=== PATIENT | female | born 1955 | race Caucasian/White ===

== ENCOUNTER → 2018-01-07 12:15 | Outpatient (CLI) | payer OTHER, MEDICAID, SELFPAY ==
--- NOTE | 2018-01-07 | DI.RAD.S_ITS ---
PROCEDURE: XR THORACIC SPINE 2V INDICATIONS: DORSALGIA TECHNIQUE: 2 views of the thoracic spine were acquired. COMPARISON: None. FINDINGS: Bones: Mild depression and deformity of the superior endplates in the upper thoracic region appears most marked at T6 where there is slight anterior volume loss. These are of undetermined chronicity. No suspicious bony lesions. Mild levoconvex curvature. Mild, multilevel disc narrowing with anterior bony lipping. 12 pairs of ribs are noted, and appear intact where visualized. Soft tissues: No paravertebral stripe thickening. IMPRESSION: 1. Very mild compression deformities of the superior endplates in the upper thoracic region, T4-T7, most marked at T6. 2. Mild thoracic curvature and diffuse degenerative changes. Dictated by: Tejinder Day M.D. on 01/07/2018 at 14:29 Approved by: Tejinder Day M.D. on 01/07/2018 at 14:34
--- NOTE | 2018-01-07 | DI.RAD.S_ITS ---
PROCEDURE: XR LUMBAR SPINE 2-3V INDICATIONS: DORSALGIA TECHNIQUE: 3 views of the lumbar spine were acquired. COMPARISON: None. FINDINGS: Bones: 5 [id number] vertebrae are present. There is mild dextroconvex curvature and slight retrolisthesis L2-3, otherwise normal bony alignment. No vertebral body compression fractures. No suspicious bony lesions. Disc degenerative changes are present at L3-4 and L4-5. Facet sclerosis L5-S1. Soft tissues: Overlying bowel gas pattern is normal. No suspicious soft tissue calcifications. IMPRESSION: Mild degenerative changes lower lumbar spine. Dictated by: Tejinder Day M.D. on 01/07/2018 at 14:34 Approved by: Tejinder Day M.D. on 01/07/2018 at 14:36
== END ==
PROVIDERS: Visit Provider Physician Assistant
DX: M51.34 Other intervertebral disc degeneration, thoracic region (principal); M41.24 Other idiopathic scoliosis, thoracic region
CPT/HCPCS: 72070; 72100

== ENCOUNTER → 2018-01-17 12:54 | Outpatient (CLI) | payer OTHER, MEDICAID, SELFPAY ==
--- NOTE | 2018-01-17 | DI.RAD.S_ITS ---
This blank DEXA report has been sent in error by the PACS system. The correct and complete report will be forthcoming in 1-2 days. Thank you for your patience and understanding. Dictated by: Demetrio Ferguson M.D. on 01/17/2018 at 13:50 Approved by: Demetrio Ferguson M.D. on 01/17/2018 at 13:50
== END ==
PROVIDERS: Visit Provider Physician Assistant
DX: M81.0 Age-related osteoporosis without current pathological fracture (principal); Z78.0 Asymptomatic menopausal state; E07.9 Disorder of thyroid, unspecified; Z87.891 Personal history of nicotine dependence
CPT/HCPCS: 77080

== ENCOUNTER 2018-01-27 15:06 | Emergency (ER) | payer OTHER, MEDICAID, SELFPAY ==
[2018-01-27 15:11] VITALS: BP 134/74; PULSE 84; RESP 14; TEMP 36.3; O2SAT 100
--- NOTE | 2018-01-27 15:51 | DI.RAD.S_ITS ---
PROCEDURE: XR HIP W PEL IF DONE LT 2V INDICATIONS: hip pain TECHNIQUE: AP pelvis with lateral view(s) of the left hip(s). COMPARISON: None. FINDINGS: Bones: No fractures or dislocations. Pelvic ring appears intact. No suspicious bony lesions. Bilateral hip joint osteoarthritis is seen. No evidence of avascular necrosis. Soft tissues: The visualized bowel gas pattern is normal. No suspicious soft tissue calcifications. IMPRESSION: Bilateral hip joint osteoarthritis. No acute pelvic or hip fracture. No evidence of avascular necrosis. Dictated by: Demetrio Ferguson M.D. on 01/27/2018 at 16:15 Approved by: Demetrio Ferguson M.D. on 01/27/2018 at 16:16
[2018-01-27] MEDS: HYDROCODONE/ACET 5/325 TABLET 1 TAB PO (16:33)
--- NOTE | 2018-01-27 16:34 | ED_ITS ---
HPI - Extremity Injury (Lower) <Shazia Gonzales PA-C - Last Filed: 01/27/18 18:00> General Chief Complaint: Extremity Injury, Lower Stated Complaint: LEFT HIP PAIN Time Seen by Provider: 01/27/18 15:45 Source: patient Mode of arrival: ambulatory Limitations: no limitations History of Present Illness HPI Narrative: This 62-year-old female complains of progressively worsening left hip pain. She states she has had this to some degree for about a month, but has had ?excruciating? pain for the last week to the point that she can't sleep due to not being able to roll over in bed because of the pain. She saw her PCP last week and was prescribed Celebrex and gabapentin for this but these have not helped (she also notes that she was recently diagnosed with osteoporosis and a compression fracture in her lumbar spine). She states that she got Aleve today and took 2 of these instead with no relief. She denies any acute trauma, states that she has had some ongoing pain across her low back for at least a couple of months and was trying to continue her usual exercises at the gym. She did get a low back adjustment apparently at the gym, does not think this or anything else correlates with the worsening of her pain. She has not had any new rash, fever, or joint swelling. She states that pain also worsens with walking and weight-bearing, better with heat and rest. She denies any radiation of her back pain in her extremities. Denies any new weakness, paresthesia, bowel or bladder symptoms Related Data Allergies Allergy/AdvReac Type Severity Reaction Status Date / Time Sulfa (Sulfonamide Allergy Severe SWELLING Verified 01/27/18 16:30 Antibiotics) AND ITCHING [SULFA (SULFONAMIDE ANTIBIOTICS)] Review of Systems <Shazia Gonzales PA-C - Last Filed: 01/27/18 18:00> Review of Systems All systems reviewed & are unremarkable except as noted in HPI and below Exam <Shazia Gonzales PA-C - Last Filed: 01/27/18 18:00> Narrative Exam Narrative: GENERAL APPEARANCE: Patient sitting comfortably, in no distress. LUNGS: Clear to auscultation bilaterally. HEART: Rate and rhythm regular without murmur, normal S1 and S2, no S3 or S4. MUSCULOSKELETAL: No point tenderness over the lumbosacral spine or left SI joint. Tender at the left anterior lateral hip border/proximal greater trochanter. She has full active and passive range of motion of the left hip not weight-bearing. Negative Alex's test. Strength bilateral lower extremities 5/5 against resistance in all hull. Negative modified straight leg raise. NEUROVASCULAR: Lower extremities no cyanosis or edema, warm and pink, sensation grossly intact DERMATOLOGIC: No exanthem Initial Vital Signs Initial Vital Signs: Vital Signs Temperature 97.4 F L 01/27/18 15:11 Pulse Rate 84 01/27/18 15:11 Respiratory Rate 14 01/27/18 15:11 Blood Pressure 134/74 01/27/18 15:11 Pulse Oximetry 100 01/27/18 15:11 <Shasta Poole DO - Last Filed: 01/30/18 12:37> Initial Vital Signs Initial Vital Signs: Vital Signs Temperature 97.4 F L 01/27/18 15:11 Pulse Rate 84 01/27/18 15:11 Respiratory Rate 14 01/27/18 15:11 Blood Pressure 134/74 01/27/18 15:11 Pulse Oximetry 100 01/27/18 15:11 Course <Shazia Gonzales PA-C - Last Filed: 01/27/18 18:00> Additional Information: Advised patient to avoid taking 2 NSAIDs. Advised that she can increase her gabapentin as she had only tried 200 mg. She has taken [place] previously without difficulty so was given some of this here and to try this evening so that she can determine whether helpful for sleep prior to talking to her PCP tomorrow. Advised not to drive when taking this or gabapentin. Orders Ordered: Discontinued Medications Hydrocodone Bitart/Acetaminophen ([place]rest[place] 5/325) 1 tab PO NOW ONE Stop: 01/27/18 16:24 Last Admin: 01/27/18 16:33 Dose: 1 tab Hydrocodone Bitart/Acetaminophen (Vicodin Prepack) 1 bottle MISC SEEINSTR ONE Stop: 01/27/18 16:49 Last Admin: 01/27/18 16:55 Dose: 1 bottle Vital Signs - 8 hr 01/27/18 15:11 01/27/18 16:55 Temperature 97.4 F L 98.4 F Pulse Rate 84 72 Respiratory Rate 14 16 Blood Pressure 134/74 Blood Pressure [Left Arm] 125/63 Pulse Oximetry 100 99 <Shasta Poole DO - Last Filed: 01/30/18 12:37> Orders Ordered: Discontinued Medications Hydrocodone Bitart/Acetaminophen ([place] 5/325) 1 tab PO NOW ONE Stop: 01/27/18 16:24 Last Admin: 01/27/18 16:33 Dose: 1 tab Hydrocodone Bitart/Acetaminophen (Vicodin Prepack) 1 bottle MISC SEEINSTR ONE Stop: 01/27/18 16:49 Last Admin: 01/27/18 16:55 Dose: 1 bottle Vital Signs - 8 hr 01/27/18 15:11 01/27/18 16:55 Temperature 97.4 F L 98.4 F Pulse Rate 84 72 Respiratory Rate 14 16 Blood Pressure 134/74 Blood Pressure [Left Arm] 125/63 Pulse Oximetry 100 99 Discharge Plan Departure Patient Disposition: Home Clinical Impression: Hip pain, left Discharge Date/Time: 01/27/18 17:01 Interventions: ED Discharge Assessment Last Done: 01/27/18 17:00 Instructions: DI for Hip Pain Activity Restrictions/Additional Instructions: You should return if you have any acutely worsening symptoms. You should take your Celebrex or Aleve, but do not use both in the same day. You can increase your gabapentin to 3 or 4 tablets at night and more if needed after you talk with Nicolle. Since you have taken hydrocodone/acetaminophen previously, we gave you little of this to try tonight at bedtime since you have not been able to sleep. Please remember that these can make you sleepy as well as the gabapentin , so you should not drive when using these medications. Also try adding over the counter lidocaine 4% patches to the painful area. Please call Nicolle tomorrow and let her know that you were seen in the emergency department and have had worsening pain so that you can get a faster follow-up visit and at least review medications while you are waiting to see the waste/materials exchange specialist Referrals: Nicolle Maldonado PA-C [Physician] - <Shasta Poole DO - Last Filed: 01/30/18 12:37> Cosign ED Attending Fadiature Attestation: I was immediately available in the department for consultation. This documentation has been reviewed and I agree with assessment and plan. Supervised by Shasta Poole DO
[2018-01-27 16:55] VITALS: BP 125/63; PULSE 72; RESP 16; TEMP 36.9; O2SAT 99
[2018-01-27] MEDS: HYDROCODONE/ACET 5/325 PREPACK 1 BOTTLE MISC (16:55)
== END 2018-01-27 17:01 | disposition home or self-care (01) ==
PROVIDERS: Emergency Provider Internal Medicine
DX: M25.552 Pain in left hip (principal)
CPT/HCPCS: 73502; 99282; 99283

== ENCOUNTER → 2018-06-23 11:14 | Outpatient (CLI) | payer OTHER, MEDICAID, SELFPAY ==
--- NOTE | 2018-06-23 | DI.RAD.S_ITS ---
PROCEDURE: XR CERVICAL SPINE 2V OR 3V INDICATIONS: BACK PAIN TECHNIQUE: 3 view(s) of the cervical spine were acquired. COMPARISON: [facility], CT, C-SPINE WITHOUT CONTRAST, 11/25/2015, 17:45. [facility], CR, CERVICAL SPINE 2 OR 3 VIEWS, 06/14/2008, 10:59. FINDINGS: Bones: No fractures or dislocations to the T1 level. Fusion from the C5 through the C7 level. Grade 1 retrolisthesis C4-C5 where there is severe disc degeneration. Moderate to severe C7-T1 disc degeneration. Mild multilevel uncovertebral hypertrophy. The lateral masses of C1 appear intact on the odontoid view. No suspicious bony lesions. Soft tissues: No prevertebral soft tissue swelling. Vascular calcifications indicate atherosclerosis. IMPRESSION: 1. Multilevel cervical fusion and disc degeneration, severe at the C4-C5 level where there is grade 1 retrolisthesis. Dictated by: Damian ROSS Interpreted: Demetrio Ferguson MD on 06/23/2018 at 13:06 Approved by: Demetrio Ferguson M.D. on 06/23/2018 at 17:00
--- NOTE | 2018-06-23 | DI.RAD.S_ITS ---
PROCEDURE: XR THORACIC SPINE 3V INDICATIONS: BACK PAIN TECHNIQUE: 3 views of the thoracic spine were acquired. COMPARISON: [facility], CR, XR LUMBAR SPINE 2-3V, 01/07/2018, 12:09. [facility], MR, MR LUMBAR SPINE WITHOUT CONTRAST, 02/10/2018, 13:20. [facility], CR, XR THORACIC SPINE 2 VIEWS, 01/30/2018, 10:54. [facility], CR, XR THORACIC SPINE 2V, 01/07/2018, 12:09. FINDINGS: Bones: There is been interval increase in L1 compression fracture with vertebral body height loss estimated at 43%. New mild compression fracture at the T9 level with vertebral body height loss estimated at 11%. No retropulsed fracture fragments. Multilevel disc degeneration.. No suspicious bony lesions. 12 pairs of ribs are noted, and appear intact where visualized. Soft tissues: No paravertebral stripe thickening. IMPRESSION: 1. Worsening L1 compression fracture and there is a new compression fracture at the T9 level compared to prior examination. If indicated MRI could be performed for further characterization. 2. Multilevel disc degeneration and diffuse osteopenia. Dictated by: Damian Cole [facility] Interpreted: Demetrio Ferguson MD on 06/23/2018 at 12:00 Approved by: Demetrio Ferguson M.D. on 06/23/2018 at 17:01
== END ==
PROVIDERS: Visit Provider Physician Assistant
DX: M80.88XA Other osteoporosis with current pathological fracture, vertebra(e), initial encounter for fracture (principal); M50.321 Other cervical disc degeneration at C4-C5 level; M51.36 Other intervertebral disc degeneration, lumbar region; M41.25 Other idiopathic scoliosis, thoracolumbar region; Z98.1 Arthrodesis status
CPT/HCPCS: 72040; 72072

== ENCOUNTER 2018-06-29 12:35 | Emergency (ER) | payer OTHER, MEDICAID, SELFPAY ==
[2018-06-29 12:50] VITALS: BP 136/90; PULSE 100; RESP 15; TEMP 36.1; O2SAT 99
--- NOTE | 2018-06-29 13:02 | DI.RAD.S_ITS ---
PROCEDURE: XR CHEST 2V INDICATIONS: pain TECHNIQUE: 2 views of the chest were acquired. COMPARISON: [facility], CT, ABDOMEN/PELVIS WITH CONTRAST, 04/29/2017, 10:56. [facility], CR, XR THORACIC SPINE 3V, 06/23/2018, 11:30. FINDINGS: Surgical changes and devices: None. Lungs and pleura: Lungs are clear. No pleural effusions or pneumothorax. Mediastinum: Mediastinal contours are normal. Heart size is normal. Bones and chest wall: No suspicious bony abnormalities. Soft tissues appear unremarkable. IMPRESSION: Mild interstitial prominence, chronic in appearance, with mild stranding at the left lung base likely representing mild or early pneumonia. This could represent chronic scarring alternatively, but this was not present on prior CT scanning of the abdomen/pelvis the included lung bases 04/29/17. Dictated by: Mahendra Jackson M.D. on 06/29/2018 at 13:40 Approved by: Mahendra Jackson M.D. on 06/29/2018 at 13:41
--- NOTE | 2018-06-29 15:26 | ED_ITS ---
HPI - Back Pain/Injury <SALINAS Marroquin - Last Filed: 06/29/18 21:34> General Chief Complaint: Back Pain/Injury Stated Complaint: Stated pain in sternum, cant lift arms Time Seen by Provider: 06/29/18 15:23 Source: patient Mode of arrival: ambulatory Limitations: no limitations History of Present Illness HPI Narrative: 62-year-old female with history of osteoporosis and chronic back pain here for complaint of sternal pain. She reports she has had sternal pain over the past couple of days. She reports that the pain started when she was reaching up overhead and she felt a pop to her sternal area. She denies any direct trauma to the sternal area. She reports increased pain with deep inspiration. She also has pain into her back area radiates into the left arm. She denies any stressors or relievers of her pain. No other concerns or complaints at this timeframe. Related Data Previous Rx's Medication Instructions Recorded cyclobenzaprine 10 mg PO TID PRN #20 tab 06/29/18 Allergies Allergy/AdvReac Type Severity Reaction Status Date / Time Sulfa (Sulfonamide Allergy Severe SWELLING Verified 06/29/18 12:50 Antibiotics) AND ITCHING [SULFA (SULFONAMIDE ANTIBIOTICS)] Review of Systems <SALINAS Marroquin - Last Filed: 06/29/18 21:34> Constitutional Denies chills, Denies fatigue, Denies fever(s), Denies lethargy and Denies weakness Eyes Denies change in vision, Denies eye discharge, Denies irritation and Denies loss of vision ENT Ears, Nose, Mouth, and Throat: Denies change in voice, Denies neck pain and Denies sore throat Cardiovascular Denies dyspnea and Denies dyspnea on exertion Comments: Sternal pain Respiratory Denies cough, Denies dyspnea, Denies dyspnea on exertion and Denies wheezing Gastrointestinal Gastrointestinal: Denies abdominal pain, Denies change in bowel habits, Denies diarrhea, Denies nausea and Denies vomiting Genitourinary Denies hematuria, Denies flank pain, Denies urinary incontinence and Denies urinary urgency Musculoskeletal Denies neck pain Integumentary/Breasts Denies pruritus, Denies erythema, Denies rash and Denies wounds Neurologic Denies confusion, Denies loss of vision and Denies weakness Psychiatric Denies anxiety, Denies confusion, Denies depression, Denies homicidal ideation and Denies suicidal ideation Endocrine Denies fatigue and Denies flushing Hematologic/Lymphatic Denies easy bruising Allergic/Immunologic Denies wheezing Exam <SALINAS Marroquin - Last Filed: 06/29/18 21:34> Initial Vital Signs Initial Vital Signs: Vital Signs Temperature 97.0 F L 06/29/18 12:50 Pulse Rate 100 H 06/29/18 12:50 Respiratory Rate 15 06/29/18 12:50 Blood Pressure 136/90 06/29/18 12:50 Pulse Oximetry 99 06/29/18 12:50 Const General: cooperative and well developed Nutritional Appearance: well nourished Orientation: alert, awake, oriented x3 and not confused HENMT Mouth: oral mucosae normal, oropharynx normal and moist mucous membranes Eyes Conjunctivae: conjunctivae normal Sclera: sclerae normal Pupils: PERRL EOM: EOM intact bilaterally Chest Other: Pain to anterior chest wall with palpation to bilateral sternal borders. No signs of trauma. Resp Effort & Inspection: normal respiratory effort, able to speak in complete sentences, no respiratory distress and no use of accessory muscles Auscultation: clear to auscultation bilaterally, no rales, no rhonchi and no wheezes Cardio Rate: regular rate Rhythm: regular rhythm Heart Sounds: no click, no gallops, no murmurs and no rubs Pulses: normal peripheral pulses GI Inspection: non-distended Palpation: soft, no hepatosplenomegaly, No guarding, No pulsatile mass and No tender Auscultation: normal bowel sounds Skin General: no rashes or lesions noted, No jaundice and No petechiae Neuro General: alert, oriented x3, gait normal and no focal motor deficits Speech: speech normal <Todd Allen DO - Last Filed: 06/30/18 08:30> Initial Vital Signs Initial Vital Signs: Vital Signs Temperature 97.0 F L 06/29/18 12:50 Pulse Rate 100 H 06/29/18 12:50 Respiratory Rate 15 06/29/18 12:50 Blood Pressure 136/90 06/29/18 12:50 Pulse Oximetry 99 06/29/18 12:50 Course <SALINAS Marroquin - Last Filed: 06/29/18 21:34> Orders Ordered: Discontinued Medications Cyclobenzaprine HCl (Flexeril) 10 mg PO NOW ONE Stop: 06/29/18 17:24 Last Admin: 06/29/18 17:42 Dose: 10 mg Vital Signs - 8 hr 06/29/18 16:10 06/29/18 17:00 Pulse Rate 98 H 92 H Respiratory Rate 16 16 Blood Pressure [Right Arm] 129/84 116/74 Pulse Oximetry 97 95 <Todd Allen DO - Last Filed: 06/30/18 08:30> Orders Ordered: Discontinued Medications Cyclobenzaprine HCl (Flexeril) 10 mg PO NOW ONE Stop: 06/29/18 17:24 Last Admin: 06/29/18 17:42 Dose: 10 mg Vital Signs - 8 hr 06/29/18 16:10 06/29/18 17:00 Pulse Rate 98 H 92 H Respiratory Rate 16 16 Blood Pressure [Right Arm] 129/84 116/74 Pulse Oximetry 97 95 MDM - Back Pain/Injury <SALINAS Marroquin - Last Filed: 06/29/18 21:34> Lab Data Result diagrams: 06/29/18 16:00 06/29/18 16:00 Lab Results 06/29/18 06/29/18 Range/Units 16:00 16:00 WBC 8.0 (4.5-11.0) X10^3/uL RBC 3.57 L (4.0-5.2) X10^6/uL Hgb 11.9 L (12.0-16.0) g/dL Hct 34.5 L (36-46) % MCV 96.6 (80-100) fL MCH 33.3 (26-34) PG MCHC 34.5 (30-36) % RDW 13.9 (11.6-14.8) % Plt Count 254 (150-400) X10^3/uL Neut % (Auto) 52.6 (50-75) % Lymph % (Auto) 41.0 H (25-40) % Hart % (Auto) 5.0 (3-14) % Eos % (Auto) 0.7 L (2-4) % Baso % (Auto) 0.7 (0-2) % Neut # (Auto) 4200 (8003-6907) /uL Lymph # (Auto) 3300 (8029-0235) /uL Hart # (Auto) 400 (0-900) /uL Eos # (Auto) 100 (0-450) /uL Baso # (Auto) 100 (0-100) /uL Sodium 136 L (137-145) mmol/L Potassium 4.1 (3.4-5.1) mmol/L Chloride 98 (98-107) mmol/L Carbon Dioxide 26 (22-32) mmol/L BUN 28 H (7-17) mg/dL Creatinine 1.00 (0.52-1.04) mg/dL Estimated GFR 56.0 L (>60) mL/min BUN/Creatinine Ratio 28.0 H (6-22) Glucose 103 (80-110) mg/dL Calcium 10.9 H (8.4-10.2) mg/dL Total Bilirubin 0.5 (0.2-1.3) mg/dL AST 95 H (14-36) IU/L ALT 59 H (9-52) IU/L Alkaline Phosphatase 90 (38-126) U/L Total Creatine Kinase 36 (30-135) U/L CK-MB (CK-2) TNP CK-MB (CK-2) Rel Index TNP Troponin I < 0.012 (0.01-0.034) ng/mL Total Protein 14.2 H* (6.3-8.2) g/dL Albumin 4.3 (3.5-5.0) g/dL Globulin 9.9 H (1.7-4.1) g/dL Albumin/Globulin Ratio 0.4 L (1.0-2.8) Imaging Data Chest x-ray: Radiologist's impression: [address] [address] XRay Report Signed Patient: Brisa Thompson [facility]#: [id number] : 5Acct:[id number] Age/Sex: 62 / FDate of Service: 06/29/18 Loc: ED Accession Number: [id number] Procedure: XR chest 2V Ordering Provider: Todd Allen D.O. PROCEDURE: XR CHEST 2V INDICATIONS: pain TECHNIQUE: 2 views of the chest were acquired. COMPARISON: [facility], CT, ABDOMEN/PELVIS WITH CONTRAST, 04/29/2017, 10: 56. [facility], CR, XR THORACIC SPINE 3V, 06/23/2018, 11:30. FINDINGS: Surgical changes and devices: None. Lungs and pleura: Lungs are clear. No pleural effusions or pneumothorax. Mediastinum: Mediastinal contours are normal. Heart size is normal. Bones and chest wall: No suspicious bony abnormalities. Soft tissues appear unremarkable. IMPRESSION: Mild interstitial prominence, chronic in appearance, with mild stranding at the left lung base likely representing mild or early pneumonia. This could represent chronic scarring alternatively, but this was not present on prior CT scanning of the abdomen/pelvis the included lung bases 04/29/17. Dictated by: Mahendra Jackson M.D. on 06/29/2018 at 13:40 Approved by: Mahendra Jackson M.D. on 06/29/2018 at 13:41 ECG Data Interpretation: EKG shows sinus tachycardia with no ST elevation or depression. No ectopy. Ventricular rate of 101. QRS duration of 84. Pr interval of 154. QTC 375. MDM Narrative Medical decision making narrative: CBC was obtained and was negative for any acute findings. Chem panel was obtained and shows elevated total for protein and elevated globulin. Unknown etiology of this finding. Will have patient follow up with primary care provider for further evaluation. Cardiac enzymes were obtained were negative. Chest x-ray shows no acute findings. EKG shows sinus rhythm with no ST elevation or depression. Signs and symptoms presents as muscle skeletal pain into the anterior chest wall as it is reproducible with palpation. [id number] ibuprofen as needed for discomfort along with muscle relaxer cyclobenzaprine. Follow up with primary care provider in the next few days for re-evaluation of elevated protein and globulin as may be indication for systemic disorders such as liver or kidney disease. <Todd Allen DO - Last Filed: 06/30/18 08:30> Lab Data Lab Results 06/29/18 06/29/18 Range/Units 16:00 16:00 WBC 8.0 (4.5-11.0) X10^3/uL RBC 3.57 L (4.0-5.2) X10^6/uL Hgb 11.9 L (12.0-16.0) g/dL Hct 34.5 L (36-46) % MCV 96.6 (80-100) fL MCH 33.3 (26-34) PG MCHC 34.5 (30-36) % RDW 13.9 (11.6-14.8) % Plt Count 254 (150-400) X10^3/uL Neut % (Auto) 52.6 (50-75) % Lymph % (Auto) 41.0 H (25-40) % Hart % (Auto) 5.0 (3-14) % Eos % (Auto) 0.7 L (2-4) % Baso % (Auto) 0.7 (0-2) % Neut # (Auto) 4200 (7035-1405) /uL Lymph # (Auto) 3300 (1965-8062) /uL Hart # (Auto) 400 (0-900) /uL Eos # (Auto) 100 (0-450) /uL Baso # (Auto) 100 (0-100) /uL Sodium 136 L (137-145) mmol/L Potassium 4.1 (3.4-5.1) mmol/L Chloride 98 (98-107) mmol/L Carbon Dioxide 26 (22-32) mmol/L BUN 28 H (7-17) mg/dL Creatinine 1.00 (0.52-1.04) mg/dL Estimated GFR 56.0 L (>60) mL/min BUN/Creatinine Ratio 28.0 H (6-22) Glucose 103 (80-110) mg/dL Calcium 10.9 H (8.4-10.2) mg/dL Total Bilirubin 0.5 (0.2-1.3) mg/dL AST 95 H (14-36) IU/L ALT 59 H (9-52) IU/L Alkaline Phosphatase 90 (38-126) U/L Total Creatine Kinase 36 (30-135) U/L CK-MB (CK-2) TNP CK-MB (CK-2) Rel Index TNP Troponin I < 0.012 (0.01-0.034) ng/mL Total Protein 14.2 H* (6.3-8.2) g/dL Albumin 4.3 (3.5-5.0) g/dL Globulin 9.9 H (1.7-4.1) g/dL Albumin/Globulin Ratio 0.4 L (1.0-2.8) Discharge Plan Departure Patient Disposition: Home Clinical Impression: Anterior chest wall pain Discharge Date/Time: 06/29/18 18:19 Interventions: ED Discharge Assessment Last Done: 06/29/18 18:22 Instructions: DI for Atypical Chest Pain Activity Restrictions/Additional Instructions: Chest x-ray was obtained and was negative for any acute findings. EKG was unremarkable. Cardiac enzymes were obtained were unremarkable. Laboratory results show elevated of protein and globulin in your blood. Unknown cause of this however there is a wide differential that may cause this such as kidney disease liver disease or other. Follow up with primary care provider next few days for evaluation. Use [id number] ibuprofen as needed for any discomfort. Cyclobenzaprine muscle relaxers prescribed as well use as directed. For any worsening symptoms return to the emergency room. Prescriptions: New cyclobenzaprine 10 mg tablet 10 mg PO TID PRN (Reason: muscle spasm) Qty: 20 RF: 0 Referrals: Nicolle Maldonado PA-C [Primary Care Provider] - <Todd Allen DO - Last Filed: 06/30/18 08:30> Cosign ED Attending Clementina Attestation: I was available for consultation during this patient's emergency department encounter
[2018-06-29 16:10] VITALS: BP 129/84; PULSE 98; RESP 16; O2SAT 97
[2018-06-29 16:13] LABS: Add Manual Diff / Slide Review NO; Basophils Absolute Auto 100 /uL (0-100); Basophils Percent Auto 0.7 % (0-2); Eosinophils Absolute Auto 100 /uL (0-450); Eosinophils Percent Auto 0.7 % (2-4); Hematocrit 34.5 % (36-46); Hemoglobin 11.9 g/dL (12.0-16.0); Lymphocytes Absolute Auto 3300 /uL (1100-4500); Mean Corpuscular HGB Conc 34.5 % (30-36); Mean Corpuscular Hemoglobin 33.3 PG (26-34); Mean Corpuscular Volume 96.6 fL (80-100); Monocytes Absolute Auto 400 /uL (0-900); Neutrophils Absolute Auto 4200 /uL (1500-7000); Neutrophils Percent Auto 52.6 % (50-75); Platelet Count 254 X10^3/uL (150-400); Red Blood Cell Count 3.57 X10^6/uL (4.0-5.2); Red Cell Distribution Width 13.9 % (11.6-14.8)
[2018-06-29 16:22] LABS: Alanine Aminotransferase 59 IU/L (9-52); Albumin 4.3 g/dL (3.5-5.0); Alkaline Phosphatase 90 U/L (38-126); Aspartate Aminotransferase 95 IU/L (14-36); Bilirubin Total 0.5 mg/dL (0.2-1.3); Blood Urea Nitrogen 28 mg/dL (7-17); Calcium 10.9 mg/dL (8.4-10.2); Carbon Dioxide 26 mmol/L (22-32); Chloride 98 mmol/L (98-107); Creatine Kinase 36 U/L (30-135); Glucose 103 mg/dL (80-110); HEMOLYSIS < 15 (0-50); Potassium 4.1 mmol/L (3.4-5.1); Sodium 136 mmol/L (137-145)
[2018-06-29 16:28] LABS: Albumin Globulin Ratio 0.4 (1.0-2.8); Globulin 9.9 g/dL (1.7-4.1)
[2018-06-29 16:30] LABS: Total Protein 14.2 g/dL (6.3-8.2)
[2018-06-29 16:34] LABS: Troponin I < 0.012 ng/mL (0.01-0.034)
[2018-06-29 17:00] VITALS: BP 116/74; PULSE 92; RESP 16; O2SAT 95
[2018-06-29] MEDS: CYCLOBENZAPRINE 10 MG TABLET PO (17:42)
== END 2018-06-29 18:19 | disposition home or self-care (01) ==
PROVIDERS: Emergency Provider Nurse Practitioner Family; PCP Physician Assistant
DX: R07.89 Other chest pain (principal)
CPT/HCPCS: 36591; 71046; 80053; 82550; 84484; 85025; 93005; 99282; 99285

== ENCOUNTER → 2018-10-01 09:32 | Outpatient (CLI) | payer OTHER, MEDICAID, SELFPAY ==
--- NOTE | 2018-10-01 | DI.RAD.S_ITS ---
PROCEDURE: XR RIBS RT MIN 3V W CXR 1V INDICATIONS: Other chest pain TECHNIQUE: 3 views of the right ribs were acquired, along with a single view chest. COMPARISON: None. FINDINGS: Surgical changes and devices: None. Bones and chest wall: Appearance of cortical step-off involving the right eighth rib, however this is only seen on one view and technically indeterminate No suspicious bony lesions. Overlying soft tissues appear unremarkable. Lungs and pleura: No pleural effusions or pneumothorax. Lungs appear clear. Mediastinum: Mediastinal contours appear normal. Heart size is normal. IMPRESSION: Possible nondisplaced right posterior eighth rib fracture although only seen on one view and appears distant from the fiducial marker there for please correlate to point tenderness. Elsewhere, no radiographically visible rib fracture. No acute disease. Dictated by: Johnson Galeas M.D. on 10/01/2018 at 10:52 Approved by: Johnson Galeas M.D. on 10/01/2018 at 10:56
== END ==
PROVIDERS: PCP Physician Assistant; Visit Provider Physician Assistant
DX: R07.89 Other chest pain (principal)
CPT/HCPCS: 71101

== ENCOUNTER → 2020-10-05 09:13 | Outpatient (CLI) | payer MEDICARE, MEDICAID, SELFPAY ==
[2020-10-05 11:08] LABS: COVID19 -Nasal RAPID Negative (Negative)
== END ==
PROVIDERS: PCP Physician Assistant; Visit Provider Physician Assistant
DX: Z20.822 Contact with and (suspected) exposure to COVID-19
CPT/HCPCS: 87635; C9803

== ENCOUNTER 2020-10-08 09:28 | Observation (INO) | payer MEDICARE, OTHER, SELFPAY ==
[2020-10-07] VITALS (22 sets, daily range): BP systolic 95–132; BP diastolic 17–88; PULSE 68–128; RESP 10–21; TEMP 36.2–36.7; O2SAT 82–99; BMI 29.2
--- NOTE | 2020-10-07 | PATH_ITS ---
[facility] Accession Number: [id number] . 01 Material submitted: . hip - RIGHT HIP . 01 Diagnosis: Right Hip, Biopsy: Fragments of bone with degenerative and reactive changes. Fragments of hematopoietic marrow, normocellular for age (30%-40% cellularity), with maturing trilineage hematopiesis and mild plasmacytosis, 5%, favor reactive type, see microscopic description. Negative for atypical lymphoid infiltrates. Negative for metastatic carcinoma. [facility] 10/13/2020 1436 Local . 01 Electronically signed: . Lydia Joel MD, Pathologist NPI- [id number] . 01 Gross description: . The specimen is received in formalin, labeled right hip, and consists of multiple haque-pink fragments of trabeculated bone and soft tissue measuring 2.5 x 2.5 x 0.4 cm in aggregate. The specimen is filtered and entirely submitted following decalcification in cassette A1. ([id number]) /[facility] 10/08/2020 1516 Local . 01 Microscopic: . Microscopic examination reveals fragments of bone and soft tissue with degenerative changes, and areas of hematopoietic marrow with trilineage maturing hematopoiesis, without increased blasts. The cellularity is appropriate for age, approximately 30%-40%, without prominent lymphoid or plasma cell aggregates. Few scattered plasma cells are identified, predominantly in perivascular location, with mature morphology, abundant cytoplasm, eccentric nucleus and inconspicuous nucleolus. Given the provided ICD-10 code (C90.01-multiple myeloma in remission) and to better evaluate those mature plasma cells (ruling out the possibility of myeloma) a limited panel of immunostains is performed with the following results: . CD138: Plasma cells positive, approximately 5%. Bingham light chain immunostain: Subset of plasma cells positive. Lambda light chain immunostain: Subset of plasma cells positive. CD56: Negative for aberrant coexpression on the plasma cells. CD3: A few scattered T lymphocytes (small lymphoid aggregates composed predominantly of T cells). CD20: Few scattered B lymphocytes positive. MONICO (panepithelial marker): Negative for metastatic carcinoma. . Given the above immunohistochemical results along with the morphology, the plasma cells are minimally increased, approximately 5%, and are polyclonal by kappa and lambda light chain immunostains without aberrant CD56 antigen expression; therefore, the mild plasmacytosis is overall favored to be reactive. . Clinical correlation and correlation with radiologic studies is recommended. . * This test was developed and its performance characteristics determined by [facility]. It has not been cleared or approved by the U.S. Food and Drug Administration. The FDA has determined that such clearance or approval is not necessary. This test is used for clinical purposes. It should not be regarded as investigational or for research. . 01 Pathologist provided ICD-10: M87.051, C90.01 . 01 CPT . 500936, 607230, F38511, [id number] Performed at: 01 [facility] [address] [place] [address], [place], [place] [id number] MD Mohit Bo MD Phone: [phone]
--- NOTE | 2020-10-07 08:34 | PM.PREOP ---
Pre-operative Note COVID-19 COVID-19 status: Negative Interval Note History & Physical reviewed/Exam performed by Physician: Yes Changes to H&P: No
[2020-10-07] MEDS: LACTATED RINGERS 1,000 ML 42 ML IV ×2 (08:56→13:36)
[2020-10-07] MEDS: MELOXICAM 7.5 MG TABLET 15 MG PO (08:56)
[2020-10-07] MEDS: ACETAMINOPHEN 325 MG TABLET 975 MG PO (08:56)
[2020-10-07] MEDS: VANCOMYCIN 1,000 MG/200 ML PIGGYBACK 200 MG IV (09:57)
[2020-10-07] MEDS: CEFAZOLIN 1 GM VIAL 2 GM IV ×2 (11:21→21:01)
[2020-10-07] MEDS: TRANEXAMIC ACID 1,000 MG VIAL 2000 MG INJ (11:30)
--- NOTE | 2020-10-07 11:47 | SUR.OPER ---
Lateral on padded OR bed. Gel axillary roll. Arms secured on padded armboard with pillow supporting top arm. Padded hip positioner braces x4 - anterior and posterior chest and pelvis. Additional gel pad used anterior pelvis. Gel pad under bottom leg from knee to foot and secured with tape over sheet.
[2020-10-07] MEDS: BUPIVACAINE 0.25% W/ EPI 30 ML VIAL 60 ML INJ (11:53)
[2020-10-07] MEDS: SODIUM CHLORIDE IRRIG SOLUTION 250 ML, EPINEPHrine 1 MG IRR (11:54)
[2020-10-07] MEDS: BUPIVACAINE LIPOSOME 266 MG/20 ML VIAL INJ (11:55)
--- NOTE | 2020-10-07 12:00 | DI.RAD.S_ITS ---
PROCEDURE: XR PELVIS 1-2V INDICATIONS: INNER OP TECHNIQUE: Intra-operative view of the pelvis and hip acquired. COMPARISON: None. FINDINGS: Bones: Intraoperative devices prior to placement of arthroplasty prostheses are in expected positions. No fractures or suspicious bony lesions. Soft tissues: Overlying surgical retractors are present, along with other intraoperative changes. IMPRESSION: Normal alignment of right total hip arthroplasty components in preparation for final phase of total hip arthroplasty. Dictated by: Mahendra Jackson M.D. on 10/07/2020 at 15:30 Approved by: Mahendra Jackson M.D. on 10/07/2020 at 15:31
--- NOTE | 2020-10-07 13:00 | DI.RAD.S_ITS ---
PROCEDURE: XR HIP W PEL IF DONE RT 2V INDICATIONS: RIGHT TOTAL HIP TECHNIQUE: AP pelvis and lateral view of the right hip acquired. [facility] 15[facility], 10/07/2020, 12:24. FINDINGS: Bones: Patient is status post right hip arthroplasty, with hardware components in expected positions. The hip joint appears congruent. The visualized bony structures appear intact. Soft tissues: Overlying postoperative changes are noted. No suspicious soft tissue densities. IMPRESSION: Normal alignment after right total hip arthroplasty. Dictated by: Mahendra Jackson M.D. on 10/07/2020 at 15:31 Approved by: Mahendra Jackson M.D. on 10/07/2020 at 15:32
[2020-10-07] MEDS: OXYCODONE IR 5 MG TABLET 20 MG PO ×2 (14:49→15:23)
--- NOTE | 2020-10-07 14:54 | SUR.PHASEI ---
pt. in sinus tach since waking up about 5min ago. dr. nice at bedside, no orders received at this time.
[2020-10-07] MEDS: HYDROMORPHONE 2 MG INJ IV ×2 (15:23→15:39)
[2020-10-07] MEDS: LACTATED RINGERS 1,000 ML 125 ML IV (17:25)
[2020-10-07] MEDS: IBUPROFEN 400 MG TABLET PO ×2 (18:07→20:59)
--- NOTE | 2020-10-07 18:12 | PC.NURSE ---
Addendum entered by Maria Fernanda Smith R.N. 10/07/20 18:20: Patients vitals at arrival were BP: 103/60, HR: 121, RR: 18, T: 97.2 O2:82% started NC at 2L and O2 improved to 94-97%. Patient is currently on NC at 2L to keep O2 up. Denies SOB or trouble breathing. Patient stated that PACU nurses told her that her BP was low there as well. Original Note: Patient was brought up by PACU t 1640. Patient is A&O and reports pain at 6/10 but states she has chronic pain so it is tolerable. Dressing is clean, dry, and intact with hemavac present. Patient is sitting up in bed and started eating dinner at 1700. Patients is at bedside.
[2020-10-07] MEDS: CARBOXYMETHYLCELLULOSE SODIUM 0.5% 1 EACH EYE-BOTH ×2 (19:15→21:05)
--- NOTE | 2020-10-07 19:19 | PC.NURSE ---
Addendum entered by Lauren Abdi R.N. 10/07/20 22:59: Tearful and c/o pain to top of right upper leg. Dilaudid po administered as per emar. Pt reports little relief. Requests assistance to change positions in bed. Precautions explained to pt for posterior hip replacement. Turned onto right operative side and pillow placed behind pt's back and between legs. Pt reports immediate relief in pain. Hemovac emptied and compressed. Ambien provided for sleep. Bed alarm in place. 1L per nc oxygen saturation level 96%. Original Note: Pt desires to attempt OOB to void. Posterior hip precautions observed and pt was instructed in precautions and mobilized out of bed to commode. Unable to void, but states feels as though needs to void. Returned to bed and bladder scanned for 501 cc/s. Pt does report feeling bladder fullness. R.T. in to do I.S. teaching. Pt performs well with this device. BL calf scd's in place. Aquacel dressing to right hip dry and intact. Pillow between legs. 02 decreased to 1L per NC and continuous monitor in place.
--- NOTE | 2020-10-07 19:57 | PM.OP.1 ---
Operative Date/Time/Diagnoses Date of procedure: 10/07/20 Time of procedure: 11:57 Pre-op diagnosis: Avascular necrosis of the right femoral head with a history of multiple myeloma with marked osteoporosis and abnormality of the left femur Post-op diagnosis: same Procedure & Clinicians Procedure: Left total hip arthroplasty, left femoral biopsy open Same procedure as scheduled: Yes Indications: This is a 64-year-old female with a known history of multiple myeloma. She has avascular necrosis of the left femoral head with collapse of the left femoral head. Her PET scan did not show specific activity in the left femur but her plain radial growth graft showed evidence of significant abnormality of the left femoral bone with mottling and some osteopenia. She is currently under active treatment for her multiple myeloma. She brought the operating room for a left total hip arthroplasty and a biopsy of her left femur. Surgeon: Natalia Enriquez Promotions Intern: Kamron Fernández Anesthesia Type: General and Spinal Operative Notes Findings: Severe AVN of the left femoral head, no severe softening or changes in the acetabulum, significant softening of the no left femur, inter medullary bone taken for biopsy from the left femur Closure Type: primary Specimen(s): other (Inter medullary bone from the left femur for pathology) Prosthetic devices, grafts, tissues, transplants, or devices: Enriquez and nephew size 48 R3 cup,-3 by 32 head, size 14 echelon cemented Enriquez and nephew stem 225 mm Applied: drain(s) Estimated Blood Loss (mL): 250 Blood products transfused: none Procedure in detail: The patient was seen in the pre-operative area, where the patient identified the left hip as the operative site and this was marked with my initials. The patient received pre-operative antibiotics and was taken to the operating room and placed on the operative table in the right lateral decubitus position after satisfactory anesthesia. A timers inspector out was performed. The left leg was prepared from the ankle to the iliac crest with ChloroPrep in the usual fashion and draped through sterile drapes. The hip was approached through an approximately 20 cm incision centered over the greater trochanter and curving gently posteriorly as it went proximally. This was carried sharply to the fascia rolan, which was divided and retracted with a self retaining retractor. The trochanteric bursa was excised with care being taken to avoid the sciatic nerve, which was identified and protected throughout the case. The short external rotators were incised and the capsulomuscular flap was raised and tagged for later repair. The hip was dislocated, and a femoral neck osteotomy performed approximately 15 mm above the lesser trochanter. Retractors were placed around the femur. The canal was opened with a box cutting osteotome, followed by a T handled reamer and a lateralizing reamer. A biopsy was obtained from the inter medullary canal using a Cloward rongeur to reach distally and grasp inter medullary bone. It was sent for pathology. She did have some softening of the femur especially distally with decreased inter medullary bone quality. The femur is a was then reamed with a straight Reamer up to a size 12 , followed by sequential broaching until there was good stability of the broach in the femur. Retractors were placed to expose the acetabulum. The labrum and central soft tissues were removed. Reaming was performed initially going up in 2 mm increments, then 1 mm increments until good bite was obtained with an odd sized reamer. The cup 1 mm larger than the last reamer was then inserted using the appropriate anteversion guides. A trial neutral liner was placed. The broach was placed in the canal. A trial head and neck were then placed and the hip relocated and checked for leg length and stability. An intraoperative film confirmed the component position and no evidence of fracture. The stem was quite unstable with a trial stem. I initially placed a shorter mid sized stem got intraoperative films and decided I wanted to go longer period of then placed down the size 12 longer stem and noted that he did passed distally but it was significantly unstable in the bone. I decided to go up to along 225 mm 14 stem and meticulously reamed did including combination of the straight reamers as well as distal canal reaming. Patient had a significant anterior bow of her femur but I was able to pass a longer stem distally without significant difficulty. A repeat trial reduction and repeat x-rays were taken with the broach which was noted to be more stable than the trial prosthesis. The patient was stable in the position of sleep, of squatting, and could be put through a range of motion with 45 degrees internal rotation without dislocation. At 90 degrees flexion, internal rotation to 70 ? was possible before dislocation. This was felt to be satisfactory and the appropriate components were opened, and the trials were removed. The acetabular liner was impacted into position. A distal cement restrictor was placed and the final stem was cemented into the prepared femoral canal. A brief Betadine soak was performed while trialing with head options. The hip was meticulously irrigated with normal saline. Finally the femoral head was impacted onto the stem. The acetabulum was cleared of all material and the hip relocated one final time. The capsulomuscular flap was then repaired to the greater trochanter though an awl hole using the tag sutures. The short external rotators were repaired with a nonabsorbable suture. A deep drain was placed and brought out anteriorly. The fascia rolan was closed with Vicryl. The subcutaneous layer was closed with barbed sutures and SteriStrips. An Aquacel Ag dressing was applied and the patient was taken to recovery having tolerated the procedure well. Complications: none Post-operative Condition: stable Disposition: Acute Care Plan for aftercare: The patient will be maintained on a standard total hip replacement protocol with weight bearing as tolerated and posterior hip precautions. The patient will receive Aspirin and sequential compression devices for DVT prophylaxis. The patient will be discharged home when safe for the home environment. Check path report at postop follow-up.
[2020-10-07] MEDS: GABAPENTIN 100 MG CAPSULE 200 MG PO (20:58)
[2020-10-07] MEDS: DOCUSATE 100 MG CAPSULE PO (20:58)
[2020-10-07] MEDS: ASPIRIN EC 81 MG TABLET PO (20:59)
[2020-10-07] MEDS: ACETAMINOPHEN 325 MG TABLET 650 MG PO (20:59)
[2020-10-07] MEDS: OXYCODONE IR 10 MG TABLET 20 MG PO (20:59)
[2020-10-07] MEDS: DORZOLAMIDE/TIMOLOL OPHTH 10 ML 1 DROPS EYE-LEFT (21:05)
[2020-10-07] MEDS: HYDROMORPHONE 2 MG TABLET PO (21:43)
[2020-10-07] MEDS: ZOLPIDEM 5 MG TABLET PO (22:43)
[2020-10-08] MEDS: OXYCODONE IR 10 MG TABLET 20 MG PO ×3 (01:06→09:55)
[2020-10-08] MEDS: LACTATED RINGERS 1,000 ML 125 ML IV (01:51)
--- NOTE | 2020-10-08 02:12 | PC.NURSE ---
Pt. reported having difficulty voiding even @ home. Bladder scanned noted 692 cc in the bladder & abdomen is distended. Requested to keep bro in placed states I was not able to sleep at all, I took a sleeping pill earlier, but my bladder is bothering me. Notified Dr. Enriquez with pt's. request ordered to keep bro until morning. 16 F. bro catheter inserted with sterile/aseptic tech. noted 875 cc out of pale urine. Will cont. POC & monitor.
[2020-10-08 03:54] VITALS: BP 105/72; PULSE 83; RESP 18; TEMP 36.2; O2SAT 99
[2020-10-08] MEDS: IBUPROFEN 400 MG TABLET PO ×3 (04:02→12:26)
[2020-10-08] MEDS: CEFAZOLIN 1 GM VIAL 2 GM IV (04:07)
[2020-10-08] MEDS: LEVOTHYROXINE 112 MCG TABLET PO (05:25)
[2020-10-08] MEDS: PANTOPRAZOLE DR 20 MG TABLET PO (06:20)
[2020-10-08 06:50] LABS: Hematocrit 31.2 % (36-46); Hemoglobin 10.6 g/dL (12.0-16.0)
[2020-10-08 08:20] VITALS: BP 106/59; PULSE 90; RESP 18; TEMP 36.4; O2SAT 94
--- NOTE | 2020-10-08 08:23 | P.PN_ITS ---
Subjective Subjective Date Patient Seen: 10/08/20 Time Patient Seen: 08:23 Interval history: Patient states she is doing well and feels her pain has improved significantly since last night. At this time the patient denies fever, chills, nausea, chest pain, shortness of breath, or urinary retention. Patient reports good sensation throughout the bilateral lower extremities. Patient notes that she has had to work with physical therapy but is eager to be discharg ed and return home. Exam Vital Signs (past 8 hours): - 10/08/20 03:54 Temperature 97.1 F L Pulse Rate 83 Respiratory Rate 18 Blood Pressure 105/72 Pulse Oximetry 99 Oxygen Delivery Method Nasal Cannula Oxygen Flow Rate 1 Narrative Exam Narrative: Pleasant 64-year-old female postop day 1 status post left total hip arthroplasty with femoral head biopsy. Patient is resting comfortably in bed, is in no acute distress, is alert and oriented x3. Skin is warm and dry, and the skin surrounding the incision site is free of erythema, warmth, induration, or discharge. Dressing over the incision site is free of strike through it is clean and dry. Good sensation appreciated throughout the bilateral lower extremities light touch. Ankle dorsiflexion, plantar flexion, eversion, inversion performed bilaterally without difficulty or discomfort. Calves are soft and nontender, negative Homans sign. Capillary refill less than 2 seconds, palpable pulses appreciated. No other signs of DVT appreciated at this time. Const General: cooperative, healthy appearing and comfortable Resp Effort & Inspection: normal respiratory effort and able to speak in complete sentences Skin General: no rashes or lesions noted Objective Labs Result Diagrams: 10/08/20 06:40 Labs: Laboratory Results - last 24 hr 10/08/20 06:40 Hgb 10.6 L Hct 31.2 L PFSH Medical History Elevated lipids History of Graves' disease Hypothyroidism (acquired) Multiple myeloma Osteoporosis Surgical History History of fusion of cervical spine History of thyroidectomy Status post loop electrosurgical excision procedure (LEEP) of cervix Social History household members: spouse Smoking Status: Former smoker alcohol intake: never Assessment & Plan Post-op Postoperative Procedures: Procedures Operation Date: 10/07/20 10:15 Actual Procedures Side Surgeon p Total Hip Arthroplasty, open biopsy hip Right Natalia Enriquez MD Postoperative day: 1 Postoperative status: doing well Postoperative plan: ambulate Postoperative plan narrative: Patient is to continue working on ambulation with the assistance of a front wheeled walker with physical therapy. Catheter and wound drain to be removed today. Patient is to continue current pain management regimen as it is adequately controlling the patient's pain level at this time. Aspirin 81 mg twice daily is to be continued for DVT prophylaxis with the assistance of SCDs. Plan is for discharge likely home today. Time Spent With Patient Time with patient: 15-24 minutes Quality VTE Deep Vein Thrombosis/Pulmonary Embolism Present on Admission: Yes
--- NOTE | 2020-10-08 08:42 | P.DS_ITS ---
History of Present Illness History of Present Illness Date Patient Seen: 10/08/20 Time Patient Seen: 08:43 Chief complaint: OPB Narrative: Refer to previous HPI. Discharge Providers Provider Discharge Date: 10/08/20 Primary care physician: Jennifer Nugent MD Consults: 10/07/20 08:27 Consult to Anesthesiology Routine Comment: Consulting Provider: Anesthesiologist Reason for consultation: Regional block for post operative pain control 10/07/20 16:57 Consult to Discharge Planning Routine Comment: Consult to Physical Therapy Evaluate & Treat Comment: Physician Instructions: post op SIRENA protocol Consult to Respiratory Therapy Evaluate & Treat Comment: Physician Instructions: Evaluate and treat Discharge provider: Kamron Fernández PA-C Summary Hospital Course Discharge Diagnosis: Avascular necrosis of the right femoral head with a history of multiple myeloma with marked osteoporosis an abnormality of the left femur Status post left total hip arthroplasty with femoral head biopsy Hospital Course: Patient was admitted to the hospital following the above-listed procedure for the above-listed diagnosis. Following the procedure the patient has been convalescing appropriately and her pain has been managed with the current pain management regimen. Throughout the course of her stay in the hospital the patient has denied fever, chills, nausea, chest pain, shortness of breath, or urinary retention. The dressing over the incision site has remained intact following the procedure. Sequential compression devices have been used for DVT prophylaxis. Patient is successfully worked on ambulation with the assistance of a front wheeled walker with physical therapy. Patient has remained weight-bearing as tolerated with standard total hip replacement pr otocol with posterior hip precautions. Status at Discharge Cognitive/behavioral status at discharge: oriented Functional status at discharge: uses cane/walker Overall status at discharge: patient is progressing back to baseline Exam Vital Signs (past 8 hours): - 10/08/20 03:54 10/08/20 08:20 Temperature 97.1 F L 97.6 F Pulse Rate 83 90 Respiratory Rate 18 18 Blood Pressure 105/72 106/59 L Pulse Oximetry 99 94 Oxygen Delivery Method Nasal Cannula Oxygen Flow Rate 0 Narrative Exam Narrative: Pleasant 64-year-old female postop day 1 status post left total hip arthroplasty with left femoral head biopsy. Patient is resting comfortably in bed, is in no acute distress, is alert oriented x3. Skin is warm dry, and the skin surrounding the incision site is free of erythema, warmth, induration, or discharge. Dressing over the incision site is free of strike through is clean and dry. Good sensation appreciated throughout the bilateral lower extremities light touch. Ankle dorsiflexion, plantar flexion, eversion, inver johnna performed bilaterally at difficulty discomfort. Hip flexion performed bilaterally, right greater than left. Calves are soft nontender, negative Homans sign. Capillary refill less than 2 seconds, palpable pulses appreciated. No other signs of DVT appreciated at this time. Const General: cooperative, healthy appearing and comfortable Resp Effort & Inspection: normal respiratory effort and able to speak in complete sentences Skin General: no rashes or lesions noted Objective Labs Result Diagrams: 10/08/20 06:40 Labs: Laboratory Results - last 24 hr 10/08/20 06:40 Hgb 10.6 L Hct 31.2 L PFSH Medical History Elevated lipids History of Graves' disease Hypothyroidism (acquired) Multiple myeloma Osteoporosis Surgical History History of fusion of cervical spine History of thyroidectomy Status post loop electrosurgical excision procedure (LEEP) of cervix Social History household members: spouse Smoking Status: Former smoker alcohol intake: never Discharge Assessment & Plan Assessment and Plan Assessment: Patient is doing well. Plan of Treatment: Patient is to remain weight-bearing as tolerated with the assistance of a front wheeled walker. Standard total hip replacement protocol with posterior hip precautions. Patient is to continue current pain management regimen as it is adequately controlling the patient's pain level. Outpatient physical therapy is to be continued following discharge from the hospital. First postoperative visit in clinic as scheduled 2 weeks following discharge from the hospital. Currently awaiting results of left femoral head biopsy, the results of which will be discussed with the patient in clinic. Patient is to contact clinic with any concerns or questions. Any signs of increased pain, redness, swelling, or discharge from around the incision site should be reported to the clinic. Aspirin 81 mg twice daily is to be continued for DVT prophylaxis. Standard total hip replacement protocol, posterior hip precautions. Discharge Plan Discharge Plan Patient Disposition: Home Provider Discharge Comment: Patient cleared for discharge pending PT clearance. Discharge orders & Medications Discharge Orders: Discharge (Order); Ordered 10/08/20 Ordered By: Kamron Fernández Prescriptions: New acetaminophen 325 mg Tablet 650 mg PO TID Qty: 90 RF: 0 oxycodone 10 mg Tablet 20 mg PO Q4H PRN (Reason: Pain) Qty: 42 RF: 0 aspirin 81 mg Tablet,Delayed Release (Dr/Ec) 81 mg PO BID Qty: 90 RF: 0 ibuprofen 400 mg Tablet 400 mg PO Q4HR Qty: 90 RF: 0 Continued alendronate 70 mg tablet 70 mg PO WEEKLY RF: 0 lansoprazole 15 mg Capsule,Delayed Release(Dr/Ec) 15 mg PO DAILY RF: 0 docusate sodium [Colace] 100 mg Capsule 200 mg PO BEDTIME RF: 0 dorzolamide-timolol 22.3-6.8 mg/mL Drops 1 ml EYE-LEFT BID RF: 0 aspirin 81 mg Tablet 81 mg PO DAILY RF: 0 acyclovir 200 mg Capsule 200 mg PO DAILY RF: 0 gabapentin 100 mg capsule 100 mg PO SEEINSTR RF: 0 levothyroxine 112 mcg tablet 112 mcg PO DAILY RF: 0 carboxymethylcellulose sodium 1 % Drops, Liquid Gel 1 drp OPHTHALMIC (EYE) QID RF: 0 calcium citrate malate-vit D3 500-200 mg-unit Tablet 2 tab PO DAILY RF: 0 oxycodone 20 mg Tablet 20 mg PO Q4H PRN (Reason: Pain) RF: 0 Follow up/Referrals: Jennifer Nugent MD [Primary Care Provider] - Diet/Activity/Treatments Diet: Diet as Tolerated Activity: Weight-bearing as tolerated with the assistance of a front wheel walker. Standard to total hip replacement protocol, posterior hip precautions. Skin/Wound/Dressing Care Report to your healthcare provider any signs of infection, such as:: chills, fever, night sweats, increased pain, unusual drainage and unusual redness Dressing: Dressing over the incision site is to remain intact until 1st p ostoperative visit in clinic. Contact clinic if the dressing is to become damaged or soiled. Other wound treatment: Avoid placing topical ointments over the incision site. Visit Report/Discharge Packet Instructions: DI for Hip Replacement Stand Alone Forms: Surgery Discharge Discharge Data Primary Care Provider: Jennifer Nugent Attending Provider: Natalia Enriquez VTE Deep Vein Thrombosis/Pulmonary Embolism Present on Admission: Yes
[2020-10-08] MEDS: CARBOXYMETHYLCELLULOSE SODIUM 0.5% 1 EACH EYE-BOTH ×2 (08:43→12:25)
[2020-10-08] MEDS: ACYCLOVIR 200 MG CAPSULE PO (08:44)
[2020-10-08] MEDS: ACETAMINOPHEN 325 MG TABLET 650 MG PO (08:44)
[2020-10-08] MEDS: GABAPENTIN 100 MG CAPSULE PO (08:44)
[2020-10-08] MEDS: ASPIRIN EC 81 MG TABLET PO (08:44)
[2020-10-08] MEDS: DOCUSATE 100 MG CAPSULE PO (08:44)
[2020-10-08] MEDS: SODIUM CHLORIDE 0.9% FLUSH 10 ML IV (08:46)
[2020-10-08] MEDS: EYE EYE-BOTH (09:02)
[2020-10-08] MEDS: RESTASIS 0.05% EYE-BOTH (09:02)
[2020-10-08] MEDS: INFLUENZA HD VACCINE 0.7 ML SYRINGE IM (09:11)
--- NOTE | 2020-10-08 09:23 | PC.NURSE ---
Day shift: Chhaya removed per verbal order from TRISTIAN Fernández. Pt tolerated well.
--- NOTE | 2020-10-08 10:10 | PT.IIE ---
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) Retention of urine, unspecified (10/07/20) Surgery Performed Operation Date: 10/07/20 10:15 Actual Procedures p Total Hip Arthroplasty, open biopsy hip(Right) - Natalia Enriquez MD Surgical History (Last Reviewed 10/08/20 @ 08:45 by Kamron Fernández PA-C) History of fusion of cervical spine History of thyroidectomy Status post loop electrosurgical excision procedure (LEEP) of cervix Medical History (Last Reviewed 10/08/20 @ 08:45 by Kamron Fernández PA-C) Elevated lipids History of Graves' disease Hypothyroidism (acquired) Multiple myeloma Osteoporosis Physical Therapy Inpatient Evaluation/Re-Eval M1 PT/OT-IP Prior Functional Status Start: 10/08/20 12:43 Freq: NEEDED Status: Active Protocol: Document 10/08/20 12:44 CGR (Rec: 10/08/20 12:57 CGR [id number]) Medical Review Prior Functional Status Medical History Reviewed Yes Communication Pt is an effective verbal communicator. Mobility and Gait Pt was IND in all mobility prior to admit. Activities of Daily Living and IADL's Pt was IND in all ADLs prior to admit. Social History Household Members spouse Living Arrangements House Number of Floors (Floors) One Floor Number of Stairs To Enter/Railing? 4 steps to enter with one railing but pt was unable to remember which side it was on. Home Environment Standard Height Toilet,Walk in Shower,Built-In Shower Seat Home Equipment Front Wheel Walker,Straight Cane,Raised Toilet Seat Without Armrests,Hand Held Shower,Grab Bars In Shower Employment Status Retired Additional Social History Comment Pt has an adjustable bed. M2 PT-IP Current Condition Start: 10/08/20 13:35 Freq: NEEDED Status: Active Protocol: Document 10/08/20 10:10 AB (Rec: 10/08/20 13:53 AB [id number]) Physical Therapy Current Condition Current Condition Evaluation Date 10/08/20 Treatment Diagnosis s/p L SIRENA posterior approach; difficulty in walking Onset Date 10/07/20 Precautions Posterior Hip Precautions No Hip Flexion > 90 degrees,No Hip Internal Rotation,No Hip Adduction Weight Bearing Status Weight Bearing Status Weight Bear as Tolerated Allowed Weight Bearing Amount (enter % RLE WBAT or #) (%) M3 PT-IP Subjective Start: 10/08/20 13:35 Freq: NEEDED Status: Active Protocol: Document 10/08/20 10:10 AB (Rec: 10/08/20 13:53 AB [email or web address]) Subjective Physical Therapy Visit Type Type Initial Evaluation Visit Start Time 10:10 Visit Stop Time 11:05 Total Visit Minutes 55 Number of HARDWARE SALES ASSISTANT Visits 0 Physical Therapy Visit Comments Patient Comments agreeable to do PT Therapy Pain Assessment Pain When Pain Assessed At Rest Pain Present Pain Present Pain Reported Location right hip Intensity 5 Scale Used increases with mobility Pain Management Techniques Apply Cold,Re-positioning, Timing of Activity with Medications M4 PT-IP Mobility and Gait Start: 10/08/20 13:35 Freq: NEEDED Status: Active Protocol: Document 10/08/20 10:10 AB (Rec: 10/08/20 13:53 [email or web address]) PT-Bed Mobility Assessment Supine to Sit Supine to Sit Minimal Assistance PT-Transfer Assessment Sit to and From Stand Sit to and from Stand Moderate Assistance,Maximum Assistance,1 Person Assistance ,Use of Upper Extremities Equipment Transfer Assistive Device Gait Belt,Front Wheeled Walker Orthotic/Prosthetic Devices or Brace: No Transfers Transfer Destination Chair Transfer Technique ambulated using FWW Transfer Ability Level of Assist Moderate Assistance,Maximum Assistance,1 Person Assistance ,Use of Upper Extremities Comments Mobility Comments educated pt regarding posterior hip precautions and requires cues to recall. completed supine to sit min A and cues. pt stated that she has compressions fractures. pt unable to do log roll at this time due to hip precautions. pt has an adjustable bed and a regular bed at home and informed pt to use her regular bed at this time and have the HOB elevated to assist her with bed mobility since she will not be able to do log roll at this time. pt agreed. pt completed sit to stand mod to max A and max cues. ambulated to the chair mod to max A and max cues ~ 12 ft. pt with unsteady antalgic gait and c/o increase pain on her hip. agreed to sit up on chair. positioned on chair. informed pt regarding current level of assistance and set up caregiver training for spouse to come in ~ 130 pm. pt agreed. Gait Assessment Gait Gait Assistance Required: Moderate Assistance,Maximum Assistance Distance (Feet) 12 Able to Maintain Weight Bearing Status Yes During Gait Assistive Devices Assistive Device Gait Belt,Front Wheeled Walker Orthotic/Prosthetic Devices or Brace: No Gait Deviations General Gait Pattern Antalgic,Decreased Stride Length,Decreased Feet Clearance,Step-to Gait Factors Limiting Gait Function Factors Limiting Gait Function Decreased Activity Tolerance, Decreased Strength,Difficulty Following Directions,Limited Range of Motion,Pain,Poor Balance,Poor Safety Awareness PT-Balance Assessment Sitting Balance and Reactions Static Sitting Balance Ability Good Dynamic Sitting Balance Ability Good Standing Balance and Reactions Static Standing Balance Ability Poor Dynamic Standing Balance Ability Poor Device Used FWW M5 PT-IP Objective Assessments Start: 10/08/20 13:35 Freq: NEEDED Status: Active Protocol: Document 10/08/20 10:10 AB (Rec: 10/08/20 13:53 AB [email or web address]) Orientation Orientation/Cognition Level of Alertness Alert Orientation Name,Age,Birthday,Month,Date, Year,Day of Week,Place, Situation Language Function Ability No Deficits Noted Safety Awareness Decreased Safety Awareness Memory Description Short Term Impaired Gross Range of Motion Lower Extremity ROM Assessment Within Functional Limits Strength Lower Extremity Strength Assessment Right Impaired Hip 3+/5 Knee 4-/5 Sensation Assessment Sensation Gross Sensation WNL Muscle Tone Muscle Tone WNL Yes M6 PT-IP Treatment Start: 10/08/20 13:35 Freq: NEEDED Status: Active Protocol: Document 10/08/20 10:10 AB (Rec: 10/08/20 13:53 AB [email or web address]) Physical Therapy Treatment Exercises Exercises Heel Slides Education Education Provided Precautions,Weight Bearing Status,Post-Op Packet,Safety M7 PT-IP Assessment and Plan Start: 10/08/20 13:35 Freq: NEEDED Status: Active Protocol: Document 10/08/20 10:10 AB (Rec: 10/08/20 13:53 AB [email or web address]) PT Summary Assessment and Plan Potential Rehabilitation Potential Good Status of Condition at Evaluation Evolving Summary Impairments Pain,ROM,Strength,Balance, Coordination,Sensation,Tone, Cognition,Bed Mobility, Transfers,Gait,Activity Tolerance Assessment Summary pt requiring mod to max A with mobility using FWW at this time and requires max cues with hip precautions. caregiver training set up for later today at ~ 130 pm. will continues to assess progress for safe d/c plan Goals Bed Mobility Goal Standby Assistance Transfer Goal Standby Assistance,Front Wheeled Walker Gait Goal Standby Assistance,Front Wheel Walker Gait Distance 150 Other Goals up/down 4 steps L rail ascending SBA Days to Meet Goals 5 Frequency of Treatment Frequency Of Treatment Twice a Day Treatment Plan Physical Therapy Treatment Plan Bed Mobility Training,Transfer Training,Gait Training, Therapeutic Exercise,Balance Retraining,Post Op Education, Discharge Planning,Hot or Cold Pack,Neuromuscular Re-ed, Coordination Retraining,Manual Therapy Precautions Posterior Hip Precautions No Hip Flexion > 90 degrees,No Hip Internal Rotation,No Hip Adduction Other Precautions RLE WBAT Recommendations To Nursing Amount of Assist Needed 1 Person Assist Discharge Recommendations PT Discharge Recommendations Home with 17/12 Assist Available,Home Health,SNF Rehab,Home vs SNF Transportation Needs at Discharge Private Vehicle,Wheelchair/ Cabulance
--- NOTE | 2020-10-08 10:50 | CM.DANOTE ---
Addendum entered by Marbella Das LPN 10/08/20 11:08: Met with pt and introduced self and role. PT Ryann was just finishing the first PT session and noted that pt needed a high level of assist and was feeling overwhelmed by the posterior hip precautions. Pt tearfully confirmed same, said her Ian would be in at 1330 for the second session and to include caregiver training. Pt stated that she did not have any preop training on what might be expected. She was not using a FWW prior to surgery but her does have one in the truck and will bring it with him. Asked about OT order since the precautions are at this point difficult for pt. Ryann stated this would be very helpful. Pt also notes that she has chronic back pain from multiple myeloma and this has made her post surgery process very painful, especially when she is lying in bed. Spoke then with courtney Lundy re above. He readily agreed to have OT see pt. P: at this time is still home later today with spouse assist. Payer: [facility] Surgeon: Dr. Amarilis Enriquez Admission status: SDC to OBS: Confirmed by UR ESTEBAN Donahue Original Note: Discharge Planning/Care Management DCP: assessment: case received, EMR reviewed. DC order for home noted. Spoke with Courtney Lundy confirmed that pt would go home today BUT that he wanted this to be later in the afternoon as he wished 2 sessions of PT to be held prior to the d/c. He instructed Esteban Dan to keep the drain in place until about 1330 and then ok to take it out if drainage < 50cc. He noted he did not plan for the pt to go home with the drain. No pre-op assessment note if found. Will check in now with pt. CM Discharge Assessment Start: 10/08/20 10:49 Freq: Status: Active Protocol: Document 10/08/20 10:49 ITV (Rec: 10/08/20 10:50 ITV [id number]) Discharge Planning Assessment Advance Directives? No: Patient states she has one at home but it is not completed yet. History Provided By Medical Record Prior Living Arrangements House Household Members spouse Is patient alert and oriented? Yes Discharge Plan Home Review Status In Process
--- NOTE | 2020-10-08 12:19 | OT.IP.EVAL ---
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) Retention of urine, unspecified (10/07/20) Surgery Performed Operation Date: 10/07/20 10:15 Actual Procedures p Total Hip Arthroplasty, open biopsy hip(Right) - Natalia Enriquez MD Past Medical History (Last Reviewed 10/08/20 @ 08:45 by Kamron Fernández PA-C) Elevated lipids History of Graves' disease Hypothyroidism (acquired) Multiple myeloma Osteoporosis Surgical History (Last Reviewed 10/08/20 @ 08:45 by Kamron Fernández PA-C) History of fusion of cervical spine History of thyroidectomy Status post loop electrosurgical excision procedure (LEEP) of cervix Occupational Therapy Inpatient Evaluation/Re-Eval M1 PT/OT-IP Prior Functional Status Start: 10/08/20 12:43 Freq: NEEDED Status: Active Protocol: Document 10/08/20 12:44 CGR (Rec: 10/08/20 12:57 CGR [id number]) Medical Review Prior Functional Status Medical History Reviewed Yes Communication Pt is an effective verbal communicator. Mobility and Gait Pt was IND in all mobility prior to admit. Activities of Daily Living and IADL's Pt was IND in all ADLs prior to admit. Social History Household Members spouse Living Arrangements House Number of Floors (Floors) One Floor Number of Stairs To Enter/Railing? 4 steps to enter with one railing but pt was unable to remember which side it was on. Home Environment Standard Height Toilet,Walk in Shower,Built-In Shower Seat Home Equipment Front Wheel Walker,Straight Cane,Raised Toilet Seat Without Armrests,Hand Held Shower,Grab Bars In Shower Employment Status Retired Additional Social History Comment Pt has an adjustable bed. M2 OT-IP Current Condition Start: 10/08/20 12:43 Freq: Status: Active Protocol: Document 10/08/20 12:44 CGR (Rec: 10/08/20 12:57 CGR [id number]) Occupational Therapy Current Condition Current Condition Evaluation Date 10/08/20 Treatment Diagnosis R SIRENA, pt has multiple myloma to her back Diagnosis Onset Date 10/07/20 Post Operative Precautions Posterior Hip Precautions No Hip Flexion > 90 degrees,No Hip Internal Rotation,No Hip Adduction Weight Bearing Status Weight Bearing Status Weight Bear as Tolerated M3 OT- IP Subjective and Pain Start: 10/08/20 12:43 Freq: Status: Active Protocol: Document 10/08/20 12:44 CGR (Rec: 10/08/20 12:57 CGR [id number]) OT- Subjective Occupational Therapy Visit Type Type Initial Evaluation Visit Start Time 11:50 Visit Stop Time 12:19 Total Visit Minutes 29 OT Pain Assessment Pain When Pain Assessed At Rest Pain Present Pain Present Pain Reported Location Right Leg Intensity 6 Scale Used Numeric (0 - 10) Management Techniques Distraction,Modification of Treatment,Re-positioning, Timing of Activity with Medications M4 OT- IP ADL's Start: 10/08/20 12:43 Freq: Status: Active Protocol: Document 10/08/20 12:44 CGR (Rec: 10/08/20 12:57 CGR [id number]) OT [id number] General Evaluation Self-Feeding Ability Independent Comments OT Self-Feeding Comments Lunch seated in chair OT ADL-Grooming Comments OT Grooming Comments not performed, already performed this am OT ADL-Oral Care Comments Oral Care Comments not performed, already performed this am OT ADL-Dressing Comments OT Dressing Comments discussed LB dressing with pt and the option for LB dressing DME. Pt states that her will help her because she thinks learning how to use the equipment will be difficult for her to remember. This tag writer agreed with pt's assessment for to assist vs trying to teach her a new way of dressing given her memory deficit. OT ADL-Toileting General Evaluation Toileting Ability Standby Assistance Comments OT Toileting Comments seated on toielt OT ADL-Bathing Comments OT Bathing Comments not performed M5 OT- IP IADL's Start: 10/08/20 12:43 Freq: Status: Active Protocol: Document 10/08/20 12:44 CGR (Rec: 10/08/20 12:57 CGR [id number]) OT-Instrumental Activities of Daily Living Deficits IADL Deficits Identified No Deficits Home Safety Awareness Awareness of Need for Assistance at Home Good Awareness Ability to Problem Solve Emergency Able to Problem Solve Situations Home Safety Comments Pt is having difficulty remembering her hip precautions but she is able to remember that she has hip precautions and refers to her handout to states what she can and con not do. Medication Management Medication Management Caregiver Administers Money Management Money Management Caregiver Provides Assistance Meal Preparation Meal Preparation Caregiver Provides Assist Railroad Car Inspector Railroad Car Inspector Caregiver Provides Assist Driving Driving Comments Pt does not drive at baseline. M6 OT- IP Functional Cognition Start: 10/08/20 12:43 Freq: Status: Active Protocol: Document 10/08/20 12:44 CGR (Rec: 10/08/20 12:57 CGR [id number]) Cognitive Factors Limiting Selfcare Function Cognitive Ability Level of Alertness Alert Patient Orientation Name,Age,Birthday,Month,Date, Year,Day of Week,Place, Situation Attention Span Ability Capable of Focused Attention, Capable of Sustained Attention Ability to Follow Commands Able to Follow One Step Commands with Increased Time, Able to Follow One Step Commands with Repetition Memory Description Short Term Impaired Safety Awareness Decreased Recall of Precautions Cognitive Comments Cognitive Assessment Comments Pt has difficulty remembering her hp precautions but recognizes this deficit and refers to her handout for reminders. OT- Vision and Hearing OT- Hearing Assessment OT- Hearing Assessment WFL OT- Vision Assessment Visual Acuity Glasses For Reading Visual Attentiveness WFL Occular Pursuits WFL Visual Convergence WFL M7 OT- IP Mobility and Balance Start: 10/08/20 12:43 Freq: Status: Active Protocol: Document 10/08/20 12:44 CGR (Rec: 10/08/20 12:57 CGR [id number]) OT- Bed Mobility Assessment Supine to Sit Supine to Sit Assist Standby Assistance,Head of Bed Elevated,Bedrails Scooting Scooting to Edge of Bed Standby Assistance,Head of Bed Elevated,Bedrails OT-Transfer Assessment Sit to and From Stand Sit to and from Stand Standby Assistance Transfers Transfer Ability Standby Assistance Technique Transfer Destination Bed,Chair,Toilet Transfer Technique Stand Step Pivot Devices Transfer Assistive Devices Gait Belt,Front Wheeled Walker Comments Mobility Comments VC for proper use of the walker but no physical assist. OT- Balance Assessment Sitting Balance and Reactions Static Sitting Balance Ability Good Dynamic Sitting Balance Ability Fair M8 OT- IP Objective Assessments Start: 10/08/20 12:43 Freq: Status: Active Protocol: Document 10/08/20 12:44 CGR (Rec: 10/08/20 12:57 CGR [id number]) OT Gross Range of Motion Upper Extremity Range of Motion Assessment Within Functional Limits OT Strength Upper Extremity Strength Assessment Within Functional Limits Comments Strength Comments grossly 4/5 OT- Coordination Assessment Upper Extremity Finger to Nose Test Within Functional Limits Finger Tapping Test Within Functional Limits OT-Muscle Tone Assessment Muscle Tone WNL Yes M9 OT- IP Assessment and Plan Start: 10/08/20 12:43 Freq: Status: Active Protocol: Document 10/08/20 12:44 CGR (Rec: 10/08/20 12:57 CGR [id number]) OT Summary Assessment and Plan Potential Rehabilitation Potential Good Analytic Complexity at Evaluation Low Summary OT Impairments Pain,Range of Motion, Functional Cognition, Functional Mobility,Dressing, Toileting,Bathing,Toilet Transfers,Shower Transfers, Activity Tolerance Progress Towards Goals Progressing Toward Goals Assessment Summary Pt presents as a low complexity evaluation s/p admit for R SIRENA posterior approach. Pt has a hx of multiple myloma and underwent chemo with lasting memory deficits. Pt is having difficulty remembering her hip precautions but knows to refer to her handout. Pt is likley to be safe for d/c home with support if he is able to be with her 24/7 upon initially discharging and if she is able to do stairs with P.T. Goals Toileting Goal Independent Bathing Goal Independent Toilet Transfer Goal Independent Shower Transfer Goal Independent Days to Meet Goals 2 Frequency of Treatment Frequency Of Treatment Once a Day Treatment Plan OT Treatment Plan ADL Training,Functional Cognition Training,Functional Mobility,Patient/Family Education,Discharge Planning Other Treatment Recommendations and Next shower Treatment Focus Discharge Recommendations OT Discharge Recommendations Home with 24/7 Assist Available Home Equipment Needs grab bars at toilet Transportation Needs at Discharge Private Vehicle
--- NOTE | 2020-10-08 13:00 | PC.NURSE ---
Day shift: Pt voided approx 400mls of clear yellow urine after [facility] d/c.
--- NOTE | 2020-10-08 13:03 | PC.NURSE ---
Day shift: Per Dr Enriquez ok to remove francisco-vac after Pt works w/ PT this afternoon.
--- NOTE | 2020-10-08 13:39 | PT.IPTN ---
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) Retention of urine, unspecified (10/07/20) Surgery Performed Operation Date: 10/07/20 10:15 Actual Procedures p Total Hip Arthroplasty, open biopsy hip(Right) - Natalia Enriquez MD Physical Therapy Treatment Note M2 PT-IP Current Condition Start: 10/08/20 13:35 Freq: NEEDED Status: Discharge Protocol: Document 10/08/20 10:10 AB (Rec: 10/08/20 13:53 AB [id number]) Physical Therapy Current Condition Current Condition Evaluation Date 10/08/20 Treatment Diagnosis s/p L SIRENA posterior approach; difficulty in walking Onset Date 10/07/20 Precautions Posterior Hip Precautions No Hip Flexion > 90 degrees,No Hip Internal Rotation,No Hip Adduction Weight Bearing Status Weight Bearing Status Weight Bear as Tolerated Allowed Weight Bearing Amount (enter % RLE WBAT or #) (%) M3 PT-IP Subjective Start: 10/08/20 13:35 Freq: NEEDED Status: Discharge Protocol: Document 10/08/20 13:00 CLB (Rec: 10/08/20 14:57 CLB [id number]) Subjective Physical Therapy Visit Type Type Treatment Note Visit Start Time 13:00 Visit Stop Time 13:39 Total Visit Minutes 39 Notes present for CG training Number of RECONCILIATION MACHINE OPERATOR Visits 1 Physical Therapy Visit Comments Patient Comments agreeable to do PT Therapy Pain Assessment Pain When Pain Assessed During Mobility Pain Present Pain Present Pain Reported M4 PT-IP Mobility and Gait Start: 10/08/20 13:35 Freq: NEEDED Status: Discharge Protocol: Document 10/08/20 13:00 CLB (Rec: 10/08/20 14:57 CLB [id number]) PT-Bed Mobility Assessment Sit to Supine Sit to Supine Standby Assistance PT-Transfer Assessment Sit to and From Stand Sit to and from Stand Standby Assistance,1 Person Assistance,Use of Upper Extremities Equipment Transfer Assistive Device Gait Belt,Front Wheeled Walker Orthotic/Prosthetic Devices or Brace: No Transfers Transfer Destination Bed Transfer Technique ambulated using FWW Transfer Ability Level of Assist Standby Assistance,1 Person Assistance,Use of Upper Extremities Comments Mobility Comments Pt stood from chair SBA and ambulated to therapy stairs. Pt started with step to gait with cues while making turns. Pt then able to ambulate with step thru gait pattern while pushing walker. Pt climbed three steps with right rail and providing CGA. Pt then ambulated back to room. Pt able to get to supine SBA. Pt performed ther ex in supine . Pt left in bed with SCD's on , bed alarm on and present. Informed RN of pt mobility. Gait Assessment Gait Gait Assistance Required: Standby Assistance,1 Person Assist Distance (Feet) 200 Able to Maintain Weight Bearing Status Yes During Gait Assistive Devices Assistive Device Gait Belt,Front Wheeled Walker Orthotic/Prosthetic Devices or Brace: No Gait Deviations General Gait Pattern Antalgic,Decreased Stride Length,Decreased Feet Clearance Factors Limiting Gait Function Factors Limiting Gait Function Decreased Activity Tolerance, Decreased Strength,Difficulty Following Directions,Limited Range of Motion,Pain,Poor Balance,Poor Safety Awareness Comments Gait Comments see mobility comments Stair Climbing Assessment Evaluation Level of Assist On Stairs Contact Guard Assistance,1 Person Assistance Devices Stair Climbing Assistive Devices Right Railing Technique/Endurance Stair Climbing Direction Ascend and Descend Stair Climbing Technique Step to Step Number of Steps Climbed 3 Stair Climbing Set # Repetitions (reps) 1 PT-Balance Assessment Sitting Balance and Reactions Static Sitting Balance Ability Good Dynamic Sitting Balance Ability Good Standing Balance and Reactions Static Standing Balance Ability Poor Dynamic Standing Balance Ability Poor Device Used FWW M5 PT-IP Objective Assessments Start: 10/08/20 13:35 Freq: NEEDED Status: Discharge Protocol: Document 10/08/20 10:10 AB (Rec: 10/08/20 13:53 AB [id number]) Orientation Orientation/Cognition Level of Alertness Alert Orientation Name,Age,Birthday,Month,Date, Year,Day of Week,Place, Situation Language Function Ability No Deficits Noted Safety Awareness Decreased Safety Awareness Memory Description Short Term Impaired Gross Range of Motion Lower Extremity ROM Assessment Within Functional Limits Strength Lower Extremity Strength Assessment Right Impaired Hip 3+/5 Knee 4-/5 Sensation Assessment Sensation Gross Sensation WNL Muscle Tone Muscle Tone WNL Yes M6 PT-IP Treatment Start: 10/08/20 13:35 Freq: NEEDED Status: Discharge Protocol: Document 10/08/20 13:00 CLB (Rec: 10/08/20 14:57 CLB [id number]) Physical Therapy Treatment Exercises Exercises Ankle Pumps,Gluteal Sets,Quad Sets,Heel Slides,Supine Hip Abduction Education Education Provided Precautions,Weight Bearing Status,Post-Op Packet,Safety M7 PT-IP Assessment and Plan Start: 10/08/20 13:35 Freq: NEEDED Status: Discharge Protocol: Document 10/08/20 13:00 CLB (Rec: 10/08/20 14:57 CLB [id number]) PT Summary Assessment and Plan Potential Rehabilitation Potential Good Status of Condition at Evaluation Evolving Summary Impairments Pain,ROM,Strength,Balance, Coordination,Sensation,Tone, Cognition,Bed Mobility, Transfers,Gait,Activity Tolerance Progress Towards Goals Progressing Toward Goals Assessment Summary Pt is SBA for all mobility and was able to recall 3/3 hip precautions. Pt was able to assist pt with SBA for gait and CGA during stair climbing. Pt seems able to d/c home with to assist when medically stable. Goals Bed Mobility Goal Standby Assistance Transfer Goal Standby Assistance,Front Wheeled Walker Gait Goal Standby Assistance,Front Wheel Walker Gait Distance 150 Other Goals up/down 4 steps L rail ascending SBA Days to Meet Goals 5 Frequency of Treatment Frequency Of Treatment Twice a Day Treatment Plan Physical Therapy Treatment Plan Bed Mobility Training,Transfer Training,Gait Training, Therapeutic Exercise,Balance Retraining,Post Op Education, Discharge Planning,Hot or Cold Pack,Neuromuscular Re-ed, Coordination Retraining,Manual Therapy Precautions Posterior Hip Precautions No Hip Flexion > 90 degrees,No Hip Internal Rotation,No Hip Adduction Other Precautions RLE WBAT Recommendations To Nursing Amount of Assist Needed 1 Person Assist Discharge Recommendations PT Discharge Recommendations Home with 17/12 Assist Available,Outpatient PT Transportation Needs at Discharge Private Vehicle
--- NOTE | 2020-10-08 14:23 | PC.NURSE ---
Day shift: Paperwork signed and all questions answered. Pt has all personal belongings and the MD scripts. Stephania remains CDI. PPP and CMS intact. Dr Enriquez did come see Pt this afternoon. Pt cleared by PT and OT today as well. Pts spouse is drining her home. Taken to that car by HYDRAULIC LIFT OPERATOR at approx [phone]. Pt is very happy she is going home today.
== END 2020-10-08 14:26 | disposition home or self-care (01) ==
LOC: OR 10-10 07:00 → AC 10-10 07:00
PROVIDERS: Admitting Provider Orthopaedic Surgery; PCP Student in an Organized Health Care Education/Training Program; Referring Provider Orthopaedic Surgery; Visit Provider Orthopaedic Surgery
PROC: 0SR90JZ Replacement of Right Hip Joint with Synthetic Substitute, Open Approach (ICD-10-PCS; CPT 27130; principal; 2020-10-07 10:15)
DX: M87.052 Idiopathic aseptic necrosis of left femur (principal); C90.00 Multiple myeloma not having achieved remission; M81.0 Age-related osteoporosis without current pathological fracture; Z23 Encounter for immunization
CPT/HCPCS: 27130; 72170; 73502; 85014; 85018; 90471; 90662; 97110; 97116; 97162; 97165; 97530; 97535; C1776; G0378; C9290; J0171; J0690; J1100; J1170; J2250; J2274; J2405; J2704; J3010